=== PATIENT | female | born 1995 | race Caucasian/White ===

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

== ENCOUNTER → 2021-10-07 | Outpatient (REF) | payer OTHER ==
[~2021-10-07] MED LIST: ZYRT10CA PO
[2021-10-07 16:43] LABS: BASO % 0.5 % (0.0-1.0); EOS # 0.2 10^3/uL (0.0-0.5); EOS % 1.7 % (0.0-3.0); HEMATOCRIT 40.1 % (36.0-47.0); HEMOGLOBIN 13.4 g/dl (12.0-15.5); LYMPH # 2.6 10^3/uL (1.5-5.0); LYMPH % 30.2 % (24.0-44.0); MEAN CORPUSCULAR HEMOGLOBIN 30.2 pg (27.0-33.0); MEAN CORPUSCULAR HGB CONC 33.4 g/dl (32.0-36.5); MEAN CORPUSCULAR VOLUME 90.5 fl (80.0-96.0); MONO # 0.5 10^3/uL (0.0-0.8); MONO % 6.1 % (2.0-8.0); NEUTROPHILS # 5.3 10^3/uL (1.5-8.5); NEUTROPHILS % 61.3 % (36.0-66.0); PLATELET COUNT, AUTOMATED 402 10^3/uL (150-450); RED BLOOD COUNT 4.43 10^6/uL (4.00-5.40); WHITE BLOOD COUNT 8.6 10^3/uL (4.0-10.0)
[2021-10-07 18:14] LABS: FERRITIN 25 NG/ML (8-252); IRON (FE) 59 UG/DL (50-170); PERCENT SATURATION 15.1 % (13.2-45.0); TOTAL IRON BINDING CAPACITY 392 UG/DL (250-450)
[2021-10-07 18:41] LABS: PROLACTIN 8.2 NG/ML
[2021-10-07 18:42] LABS: FOLLICLE STIMULATING HORMONE 2.7 mIU/mL; LUTEINIZING HORMONE 4.5 mIU/mL
[2021-10-07 19:18] LABS: HCG, SERUM QUALITATIVE NEGATIVE (NEGATIVE)
== END ==
LOC: M LAB REF 16:12
PROVIDERS: ATTEND Nurse Practitioner Family
DX: N92.6 Irregular menstruation, unspecified (principal)

== ENCOUNTER → 2021-10-16 | Outpatient (CLI) | payer OTHER | LOC: M WHC 07:33 | PROVIDERS: ATTEND Nurse Practitioner Family | DX: N92.6 Irregular menstruation, unspecified (principal) ==

== ENCOUNTER → 2021-12-22 | Outpatient (REF) | payer OTHER ==
[2021-12-22 18:09] LABS: HCG, SERUM QUALITATIVE POSITIVE (NEGATIVE)
[2021-12-22 18:29] LABS: HCG, SERUM QUANTITATIVE 184 MIU/ML
== END ==
LOC: M LAB REF 16:41
PROVIDERS: ATTEND Nurse Practitioner Family
DX: N92.5 Other specified irregular menstruation (principal)

== ENCOUNTER → 2022-01-13 | Outpatient (REF) | payer OTHER ==
[2022-01-14 12:05] LABS: GC DNA AMPLIFICATION NEGATIVE (NEGATIVE)
== END ==
LOC: M LAB REF 17:11
PROVIDERS: ATTEND Nurse Practitioner Family
DX: N76.0 Acute vaginitis (principal)

== ENCOUNTER → 2022-01-29 | Outpatient (CLI) | payer MEDICAID ==
[2022-01-29 15:54] LABS: HEMATOCRIT 36.4 % (36.0-47.0); HEMOGLOBIN 12.6 g/dl (12.0-15.5); MEAN CORPUSCULAR HEMOGLOBIN 30.3 pg (27.0-33.0); MEAN CORPUSCULAR HGB CONC 34.6 g/dl (32.0-36.5); MEAN CORPUSCULAR VOLUME 87.5 fl (80.0-96.0); PLATELET COUNT, AUTOMATED 350 10^3/uL (150-450); RED BLOOD COUNT 4.16 10^6/uL (4.00-5.40); WHITE BLOOD COUNT 10.9 10^3/uL (4.0-10.0)
[2022-01-29 17:53] LABS: GC DNA AMPLIFICATION NEGATIVE (NEGATIVE)
[2022-01-29 18:29] LABS: HIV 1&2 SCREEN CENTAUR NEGATIVE (NEGATIVE)
[2022-01-29 18:37] LABS: HEPATITIS C VIRUS ABY INDEX 0.1 INDEX (<0.8)
== END ==
LOC: M PLALAB 14:33
PROVIDERS: ATTEND Advanced Practice Midwife
DX: Z34.01 Encounter for supervision of normal first pregnancy, first trimester (principal)

== ENCOUNTER → 2022-02-27 | Outpatient (CLI) | payer MEDICAID | LOC: M PLALAB 16:02 | PROVIDERS: ATTEND Obstetrics & Gynecology | DX: Z3A.14 14 weeks gestation of pregnancy (principal) ==

== ENCOUNTER → 2022-04-06 | Outpatient (CLI) | payer MEDICAID, OTHER | LOC: M WHC 07:43 | PROVIDERS: ATTEND Obstetrics & Gynecology | DX: Z36.3 Encounter for antenatal screening for malformations (principal); Z3A.19 19 weeks gestation of pregnancy ==

== ENCOUNTER → 2022-05-13 | Outpatient (CLI) | payer OTHER | LOC: M WHC 07:02 | PROVIDERS: ATTEND Advanced Practice Midwife | DX: Z34.92 Encounter for supervision of normal pregnancy, unspecified, second trimester (principal) ==

== ENCOUNTER → 2022-05-21 | Outpatient (CLI) | payer OTHER, MEDICAID ==
[2022-05-21 14:02] LABS: HEMATOCRIT 35.9 % (36.0-47.0); HEMOGLOBIN 11.7 g/dl (12.0-15.5); MEAN CORPUSCULAR HEMOGLOBIN 30.2 pg (27.0-33.0); MEAN CORPUSCULAR HGB CONC 32.6 g/dl (32.0-36.5); MEAN CORPUSCULAR VOLUME 92.5 fl (80.0-96.0); PLATELET COUNT, AUTOMATED 341 10^3/uL (150-450); RED BLOOD COUNT 3.88 10^6/uL (4.00-5.40); WHITE BLOOD COUNT 12.5 10^3/uL (4.0-10.0)
== END ==
LOC: M PLALAB 08:54
PROVIDERS: ATTEND Obstetrics & Gynecology
DX: Z34.02 Encounter for supervision of normal first pregnancy, second trimester (principal)

== ENCOUNTER → 2022-06-01 | Outpatient (CLI) | payer MEDICAID, OTHER | LOC: M LAB 07:49 | PROVIDERS: ATTEND Obstetrics & Gynecology | DX: R73.09 Other abnormal glucose (principal) ==

== ENCOUNTER → 2022-07-31 | Outpatient (REF) | payer MEDICAID | LOC: M PLALAB 14:46 | PROVIDERS: ATTEND Obstetrics & Gynecology | DX: Z36.85 Encounter for antenatal screening for Streptococcus B (principal) ==

== ENCOUNTER 2022-09-05 09:11 | Inpatient (IN) | payer MEDICAID, OTHER ==
[~2022-09-05] VITALS: Ht 154.9 cm; Wt 101.6 kg
[2022-09-05] VITALS (11 sets, daily range): BP systolic 115–136; BP diastolic 68–84
[2022-09-05] MEDS ORDERED: MULTTAB20 PO (09:51)
[2022-09-05] MEDS ORDERED: TUMS500C PO (09:52)
[2022-09-05] MEDS ORDERED: HOME MED LIST COMPLETE! XX SCH (09:55)
[2022-09-05] MEDS: miSOPROStol 50MCG 1/2 TABLET PO SCH ×3 (11:02→19:00)
[2022-09-05 11:43] LABS: HEMATOCRIT 31.8 % (36.0-47.0); HEMOGLOBIN 10.2 g/dl (12.0-15.5); MEAN CORPUSCULAR HEMOGLOBIN 26.2 pg (27.0-33.0); MEAN CORPUSCULAR HGB CONC 32.1 g/dl (32.0-36.5); MEAN CORPUSCULAR VOLUME 81.7 fl (80.0-96.0); PLATELET COUNT, AUTOMATED 335 10^3/uL (150-450); RED BLOOD COUNT 3.89 10^6/uL (4.00-5.40); WHITE BLOOD COUNT 11.7 10^3/uL (4.0-10.0)
[2022-09-05] MEDS ORDERED: BICITRA 30ML SOLN UDC PO ONE (11:50)
[2022-09-05] MEDS ORDERED: AMPICILLIN SOD 2 GM in D5W MINI-BAG PLUS 100 ML IV ONE ×2 (12:00→12:30)
[2022-09-05] MEDS: LR 1,000 ML IV SCH (12:28)
[2022-09-05] MEDS ORDERED: ASPI81CH33 PO (15:14)
[2022-09-05] MEDS: AMPICILLIN SOD 1 GM in D5W MINI-BAG PLUS 50 ML IV SCH ×2 (16:29→20:36)
[2022-09-05] MEDS ORDERED: OXYTOCIN DRIP 30 UNITS in IV 1 EA IV SCH (22:45)
[2022-09-06] VITALS (51 sets, daily range): BP systolic 105–147; BP diastolic 54–93; TEMP 98.6; O2SAT 96–98
[2022-09-06] MEDS: AMPICILLIN SOD 1 GM in D5W MINI-BAG PLUS 50 ML IV SCH ×2 (00:33→06:17)
[2022-09-06] MEDS ORDERED: NALOXONE INJ 0.4MG/1ML VIAL IV PRN ×3 (00:35→11:55)
[2022-09-06] MEDS ORDERED: diphenhydrAMINE 50MG/ML VIAL IV PRN ×2 (00:35→11:55)
[2022-09-06] MEDS ORDERED: EPIDURAL/PCA KEYS XX PRN (00:35)
[2022-09-06] MEDS ORDERED: ePHEDrine SULFATE 25 MG/5 ML(5MG/ML) SYRINGE IVP PRN (00:35)
[2022-09-06] MEDS ORDERED: LR 500 ML IV PRN (00:35)
[2022-09-06] MEDS ORDERED: ONDANSETRON 4MG 2ML VIAL IV PRN ×3 (00:35→11:55)
[2022-09-06] MEDS: LR 1,000 ML IV SCH ×2 (01:32→03:39)
[2022-09-06] MEDS: FENTANYL/ROPIVACAINE/NACL BAG 100 ML EPIDURAL SCH ×2 (01:35→06:21)
[2022-09-06] MEDS ORDERED: LIDOCAINE 2% W/EPINEPHRINE 20ML VIAL **PRES FREE As Ordered ONE (09:49)
[2022-09-06] MEDS ORDERED: fentaNYL 100 MCG/2 ML INJECTION As Ordered ONE (09:50)
[2022-09-06] MEDS ORDERED: EPINEPHrine 1MG/10ML SYRINGE 1.5IN As Ordered ONE (09:51)
[2022-09-06] MEDS ORDERED: SODIUM BICARBONATE 8.4% INJ 50ML SYRINGE As Ordered ONE (09:52)
[2022-09-06] MEDS ORDERED: ceFAZolin SOD 2 GM in IV 1 EA IV ONE (10:00)
[2022-09-06] MEDS ORDERED: BICITRA 30ML SOLN UDC PO ONE (10:00)
[2022-09-06] MEDS ORDERED: ONDANSETRON 4MG 2ML VIAL As Ordered ONE (10:29)
[2022-09-06] MEDS ORDERED: KETOROLAC 60MG 2ML VIAL As Ordered ONE (10:29)
[2022-09-06] MEDS ORDERED: OXYTOCIN 30UNITS IN 0.9% NaCl 500ML IV BAG As Ordered ONE ×3 (10:29→11:43)
[2022-09-06] MEDS ORDERED: AZITHROMYCIN INJ 500 MG, VIAL MATE ADAPTER 1 EACH in NS 250 ML IV ONE (10:30)
[2022-09-06] MEDS ORDERED: METOCLOPRAMIDE INJ 10MG/2ML VIAL As Ordered ONE (10:36)
[2022-09-06] MEDS ORDERED: MORPHINE PRES-FREE INJ 10 MG/10 ML VIAL As Ordered ONE (10:47)
[2022-09-06] MEDS ORDERED: PHENYLephrine 500MCG 5ML (100MCG/ML) SYRINGE As Ordered ONE (10:53)
[2022-09-06 10:54] LABS: CORD GAS ABE V -0.9; CORD GAS HCO3 A 27.6 MMOL/L; CORD GAS HCO3 V 24.1 MMOL/L; CORD GAS O2 SAT A 36.8 %; CORD GAS O2 SAT V 61.7 %; CORD GAS PCO2 A 55.4 mmHg; CORD GAS PCO2 V 41.3 mmHg; CORD GAS PH A 7.315 UNITS; CORD GAS PH V 7.384 UNITS; CORD GAS PO2 A 16.8 mmHg; CORD GAS PO2 V 24.3 mmHg; CORD GAS SBC A 22.7 MMOL/L; CORD GAS SBC V 22.6 MMOL/L; CORD GAS TCO2 A 29.3 MMOL/L; CORD GAS TCO2 V 25.4 MMOL/L
[2022-09-06] MEDS ORDERED: OXYTOCIN DRIP 30 UNITS in IV 1 EA IV SCH (11:05)
[2022-09-06] MEDS ORDERED: ACETAMINOPHEN 500 MG TAB PO PRN (11:05)
[2022-09-06] MEDS ORDERED: RHOGAM 300MCG (1500IU) INJ IM SCH (11:05)
[2022-09-06] MEDS ORDERED: NALBUPHINE HCL 10 MG/ML 1ML AMP IV PRN (11:55)
[2022-09-06] MEDS ORDERED: METOCLOPRAMIDE INJ 10MG/2ML VIAL IV PRN (11:55)
[2022-09-06] MEDS ORDERED: MEPERIDINE 25 MG/ML 1ML VIAL IV PRN (11:55)
[2022-09-06] MEDS ORDERED: fentaNYL 100 MCG/2 ML INJECTION IV PRN (11:55)
[2022-09-06] MEDS ORDERED: **NOTE PATIENT COMMENT** MISC XX SCH (11:55)
[2022-09-06] MEDS ORDERED: LR 1,000 ML IV SCH (11:55)
[2022-09-06] MEDS: SLF 3 ML SYR IV SCH ×2 (13:51→17:30)
[2022-09-06] MEDS: KETOROLAC 30 MG/ML 1ML VIAL IV SCH ×2 (17:30→22:58)
[2022-09-06] MEDS: DOCUSATE SODIUM 100MG CAPSULE PO SCH (20:21)
[2022-09-07 02:01] VITALS: BP 100/56; O2SAT 99
[2022-09-07] MEDS: SLF 3 ML SYR IV SCH (03:48)
[2022-09-07 05:48] VITALS: BP 106/59; O2SAT 100
[2022-09-07] MEDS: KETOROLAC 30 MG/ML 1ML VIAL IV SCH (05:48)
[2022-09-07 06:46] LABS: HEMATOCRIT 23.5 % (36.0-47.0); MEAN CORPUSCULAR HEMOGLOBIN 26.4 pg (27.0-33.0); MEAN CORPUSCULAR HGB CONC 31.5 g/dl (32.0-36.5); MEAN CORPUSCULAR VOLUME 83.9 fl (80.0-96.0); PLATELET COUNT, AUTOMATED 276 10^3/uL (150-450); WHITE BLOOD COUNT 14.6 10^3/uL (4.0-10.0)
[2022-09-07 06:49] LABS: HEMOGLOBIN 7.4 g/dl (12.0-15.5)
[2022-09-07 10:00] VITALS: BP 125/71; O2SAT 97
[2022-09-07] MEDS ORDERED: PERCOCET 5MG/325MG TAB PO PRN (10:10)
[2022-09-07] MEDS ORDERED: MOM 30ML SUSPENSION UDC PO PRN (10:10)
[2022-09-07] MEDS: ENOXAPARIN 40MG/0.4ML SYRINGE (J1650 PER 10MG) SC SCH (11:00)
[2022-09-07] MEDS: PERCOCET 5MG/325MG TAB PO PRN ×2 (11:53→19:40)
[2022-09-07] MEDS: PRENATAL VITAMINS CHEWABLE TABLET PO SCH (11:53)
[2022-09-07] MEDS: SIMETHICONE 80MG CHEW TAB PO PRN ×2 (11:53→21:13)
[2022-09-07] MEDS: DOCUSATE SODIUM 100MG CAPSULE PO SCH ×2 (11:53→21:09)
[2022-09-07 14:00] VITALS: BP 134/83; O2SAT 99
[2022-09-07] MEDS: IBUPROFEN 800 MG TAB PO SCH ×2 (16:43→22:51)
[2022-09-07 18:00] VITALS: BP 129/71; O2SAT 98
[2022-09-07 22:05] VITALS: BP 119/75; O2SAT 100
[2022-09-08 02:00] VITALS: BP 118/60; O2SAT 98
[2022-09-08] MEDS: PERCOCET 5MG/325MG TAB PO PRN (04:07)
[2022-09-08 06:08] VITALS: BP 122/76; O2SAT 99
[2022-09-08] MEDS: IBUPROFEN 800 MG TAB PO SCH (06:18)
[2022-09-08] MEDS: PRENATAL VITAMINS CHEWABLE TABLET PO SCH (08:54)
[2022-09-08] MEDS: DOCUSATE SODIUM 100MG CAPSULE PO SCH (08:54)
[2022-09-08] MEDS ORDERED: MEASLES,MUMPS,RUBELLA VACCINE INJ (MMR-II) SC.IMMUN ONE (09:00)
[2022-09-08] MEDS: ENOXAPARIN 40MG/0.4ML SYRINGE (J1650 PER 10MG) SC SCH (09:00)
[2022-09-08] MEDS ORDERED: ENOXAPARIN 40MG/0.4ML SYRINGE (J1650 PER 10MG) SC SCH (09:00)
[2022-09-08] MEDS ORDERED: IBUP1TAB6 PO (09:08)
[2022-09-08] MEDS ORDERED: ACET-683 PO (09:08)
[2022-09-08] MEDS ORDERED: COLA100C5 PO (09:08)
[2022-09-08] MEDS ORDERED: OXYC-517 PO (09:10)
[2022-09-08 09:36] LABS: HEMATOCRIT 24.7 % (36.0-47.0); MEAN CORPUSCULAR HEMOGLOBIN 26.7 pg (27.0-33.0); MEAN CORPUSCULAR HGB CONC 32.4 g/dl (32.0-36.5); MEAN CORPUSCULAR VOLUME 82.3 fl (80.0-96.0); PLATELET COUNT, AUTOMATED 312 10^3/uL (150-450); WHITE BLOOD COUNT 11.9 10^3/uL (4.0-10.0)
[2022-09-08 10:00] VITALS: BP 121/79; O2SAT 98
== END 2022-09-08 12:35 | disposition home or self-care (01) | DRG 540 ==
LOC: M LDI 09:11 → M OBS 09-06 12:58
PROVIDERS: ADMIT Obstetrics & Gynecology; ATTEND Obstetrics & Gynecology
PROC: 3E0P7GC Introduction of Other Therapeutic Substance into Female Reproductive, Via Natural or Artificial Opening (ICD-10-PCS; 2022-09-05)
PROC: 10907ZC Drainage of Amniotic Fluid, Therapeutic from Products of Conception, Via Natural or Artificial Opening (ICD-10-PCS; 2022-09-06)
PROC: 10D00Z1 Extraction of Products of Conception, Low, Open Approach (ICD-10-PCS; principal; 2022-09-06 10:30)
DX: O48.0 Post-term pregnancy (principal); O99.824 Streptococcus B carrier state complicating childbirth; O76 Abnormality in fetal heart rate and rhythm complicating labor and delivery; Z37.0 Single live birth; Z3A.41 41 weeks gestation of pregnancy; Z86.711 Personal history of pulmonary embolism; Z86.718 Personal history of other venous thrombosis and embolism; Z79.82 Long term (current) use of aspirin

== ENCOUNTER → 2022-11-11 | Outpatient (REF) | payer OTHER, MEDICAID ==
[~2022-11-11] MED LIST changes: +ACET-683 PO; +ASPI81CH33 PO; +COLA100C5 PO; +IBUP1TAB6 PO; +MULTTAB20 PO; +OXYC-517 PO; +TUMS500C PO
[2022-11-11 17:30] LABS: GC DNA AMPLIFICATION NEGATIVE (NEGATIVE)
== END ==
LOC: M SFHCWAGY 15:20
PROVIDERS: ATTEND Obstetrics & Gynecology
DX: Z20.2 Contact with and (suspected) exposure to infections with a predominantly sexual mode of transmission (principal)

== ENCOUNTER → 2023-02-15 | Outpatient (REF) | payer MEDICARE, MEDICAID | LOC: M PLALAB 10:54 | PROVIDERS: ATTEND Obstetrics & Gynecology | DX: Z12.4 Encounter for screening for malignant neoplasm of cervix (principal) ==

== ENCOUNTER → 2023-04-21 | Outpatient (REF) | payer MEDICARE, MEDICAID ==
[2023-04-21 12:38] LABS: ALBUMIN 3.8 G/DL (3.2-5.2); ALKALINE PHOSPHATASE 73 U/L (46-116); ALT/SGPT 15 U/L (7.0-40); AST/SGOT 11 U/L (<34); BILIRUBIN,TOTAL 0.7 MG/DL (0.3-1.2); BLOOD UREA NITROGEN 7 MG/DL (9-23); CALCIUM LEVEL 9.7 MG/DL (8.5-10.1); CARBON DIOXIDE LEVEL 26 MMOL/L (20-31); CHLORIDE LEVEL 106 MMOL/L (98-107); CHOLESTEROL LEVEL 199 MG/DL (<200); CHOLESTEROL RISK RATIO 4.01 (<5); CREATININE FOR GFR 0.56 MG/DL (0.55-1.30); GLOMERULAR FILTRATION RATE > 60.0 (>60); GLUCOSE, FASTING 88 MG/DL (60-100); HDL CHOLESTEROL 49.6 MG/DL (>40); LDL CHOLESTEROL 127.8 MG/DL (<100); NON-HDL-C 149.4 MG/DL; SODIUM LEVEL 138 MMOL/L (136-145); TOTAL PROTEIN 6.9 G/DL (5.7-8.2); TRIGLYCERIDES LEVEL 108 MG/DL (<150)
[2023-04-21 12:40] LABS: THYROID STIMULATING HORMONE 1.814 uIU/ML (0.55-4.78)
== END ==
LOC: M LAB REF 12:07
PROVIDERS: ATTEND Family Medicine Addiction Medicine
DX: E66.3 Overweight (principal); E07.9 Disorder of thyroid, unspecified

== ENCOUNTER → 2024-05-04 | Outpatient (CLI) | payer OTHER | LOC: M WHC 10:43 | PROVIDERS: ATTEND Physician Assistant | DX: R19.09 Other intra-abdominal and pelvic swelling, mass and lump (principal) ==

== ENCOUNTER → 2024-06-01 | Outpatient (CLI) | payer OTHER ==
[~2024-06-01] MED LIST changes: +ISOVUE-370 76% 100ML VIAL ONE
== END ==
LOC: M PLAIMG 13:54
PROVIDERS: ATTEND Physician Assistant
DX: R19.09 Other intra-abdominal and pelvic swelling, mass and lump (principal)

== ENCOUNTER → 2024-06-08 | Outpatient (REF) | payer OTHER ==
[~2024-06-08] MED LIST changes: -ISOVUE-370 76% 100ML VIAL ONE
[2024-06-08 19:03] LABS: ALBUMIN 4.2 G/DL (3.2-5.2); ALKALINE PHOSPHATASE 63 U/L (35-104); ALT/SGPT 45 U/L (7.0-40); AST/SGOT 21 U/L (<34); BILIRUBIN,TOTAL 0.6 MG/DL (0.3-1.2); BLOOD UREA NITROGEN 11 MG/DL (9-23); CALCIUM LEVEL 10.5 MG/DL (8.5-10.1); CARBON DIOXIDE LEVEL 30 MMOL/L (20-31); CHLORIDE LEVEL 102 MMOL/L (98-107); CHOLESTEROL LEVEL 225 MG/DL (<200); CHOLESTEROL RISK RATIO 3.62 (<5); CREATININE FOR GFR 0.58 MG/DL (0.55-1.30); GLOMERULAR FILTRATION RATE > 90.0 (>60); GLUCOSE, FASTING 90 MG/DL (60-100); HDL CHOLESTEROL 62.1 MG/DL (>40); LDL CHOLESTEROL 139.5 MG/DL (<100); NON-HDL-C 162.9 MG/DL; POTASSIUM SERUM 4.2 MMOL/L (3.5-5.1); SODIUM LEVEL 141 MMOL/L (136-145); TOTAL PROTEIN 7.4 G/DL (5.7-8.2); TRIGLYCERIDES LEVEL 117 MG/DL (<150)
[2024-06-08 19:04] LABS: THYROID STIMULATING HORMONE 2.443 uIU/ML (0.55-4.78); TOTAL 25(OH) VITAMIN D 20.6 NG/ML (20.0-100.0)
[2024-06-08 19:34] LABS: HEMOGLOBIN A1c 4.9 % (4.0-6.0)
== END ==
LOC: M LAB REF 16:46
PROVIDERS: ATTEND Physician Assistant
DX: E66.9 Obesity, unspecified (principal); E55.9 Vitamin D deficiency, unspecified

== ENCOUNTER 2024-07-07 08:10 | Day surgery (SDC) | payer OTHER ==
[~2024-07-07] VITALS: Ht 154.9 cm; Wt 85.7 kg
[~2024-07-07 08:10] MED LIST changes: +EPIN0.3I11 SC; +GLYCOPYRROLATE INJ 0.2 MG/ML 2 ML VIAL As Ordered ONE; +KETOROLAC 30 MG/ML 1ML VIAL As Ordered ONE; +LIDOCAINE 2% 100MG/5ML SDV (FOR ANES.) As Ordered ONE; +LR 1,000 ML IV SCH; +MIDAZOLAM INJ 2MG/2ML VIAL As Ordered ONE; +MULTTAB86 PO; +ONDANSETRON 4MG 2ML VIAL As Ordered ONE; +VITA200016 PO; +fentaNYL 100 MCG/2 ML INJECTION As Ordered ONE; +propofoL 200 MG/20 ML VIAL As Ordered ONE
[2024-07-07] MEDS: CelecoXIB 400 MG CAP PO ONE (08:51)
[2024-07-07] MEDS: ceFAZolin SOD 2 GM IV ONCE IV ONE (10:05)
[2024-07-07] MEDS ORDERED: ACETAMINOPHEN 1000MG/100ML IV BAG As Ordered ONE (10:10)
[2024-07-07] MEDS: LIDOCAINE 1% SDV 30ML VIAL As Ordered ONE (10:30)
[2024-07-07] MEDS ORDERED: fentaNYL 100 MCG/2 ML INJECTION IV PRN (10:40)
[2024-07-07] MEDS ORDERED: ONDANSETRON 4MG 2ML VIAL IV PRN (10:40)
[2024-07-07] MEDS ORDERED: oxyCODONE 5MG TAB PO PRN (10:40)
[2024-07-07] MEDS ORDERED: MORPHINE 2 MG/ML 1ML VIAL IV PRN (10:40)
[2024-07-07 11:38] VITALS: BP 120/63; TEMP 98.1; O2SAT 98
== END 2024-07-07 11:43 | disposition home or self-care (01) ==
LOC: M SDC 08:10
PROVIDERS: ATTEND Surgery
DX: D17.1 Benign lipomatous neoplasm of skin and subcutaneous tissue of trunk (principal); Z91.010 Allergy to peanuts; Z79.899 Other long term (current) drug therapy
CPT/HCPCS: 22903; 81025; 88304; J0131; J0665; J0690; J1100; J1596; J1885; J2250; J2405; J3010